=== PATIENT | female | born 1995 | race Caucasian/White ===

== ENCOUNTER 2016-10-13 12:43 | Outpatient (CLI) | payer OTHER | END 2016-10-13 15:50 | disposition home or self-care (01) | LOC: GENOP 12:43 | DX: O99.89 Other specified diseases and conditions complicating pregnancy, childbirth and the puerperium (principal); R10.31 Right lower quadrant pain; Z3A.31 31 weeks gestation of pregnancy | CPT/HCPCS: 59025; 81001; 82731; 96372; J0696 ==

== ENCOUNTER 2016-11-10 18:08 | Outpatient (CLI) | payer OTHER | END 2016-11-10 19:47 | disposition home or self-care (01) | LOC: GENOP 18:08 | DX: O26.853 Spotting complicating pregnancy, third trimester (principal); Z3A.36 36 weeks gestation of pregnancy | CPT/HCPCS: 81001; G0463 ==

== ENCOUNTER 2020-08-10 16:59 | Inpatient (IN) | payer OTHER ==
[~2020-08-10] VITALS: Ht 177.8 cm; Wt 95.3 kg
[~2020-08-10 16:59] MED LIST: AUGMENTIN 875-1 EACH PO
[2020-08-10] MEDS ORDERED: BUSPAR 10MG10 MG PO (17:35)
[2020-08-10 17:39] LABS: HEMOGLOBIN 10.6 gm/dl (12.3-15.3); RED BLOOD COUNT 3.59 M/UL (4.00-5.10); WHITE BLOOD COUNT 11.3 K/UL (4.5-11.0)
[2020-08-11] MEDS ORDERED: CEPHALEXIN500 MG PO (10:11)
[2020-08-11] MEDS ORDERED: IBUPROFEN600 MG PO (12:43)
[2020-08-11] MEDS ORDERED: DOCUSATE SODIU100 MG PO (12:43)
[2020-08-12 05:55] LABS: HEMOGLOBIN 9.3 gm/dl (12.3-15.3)
[2020-08-13] MEDS ORDERED: LABETALOL HCL100 MG PO (14:48)
== END 2020-08-13 15:40 | disposition home or self-care (01) | DRG 807 ==
LOC: GENOP 16:59 → OB 17:20
PROVIDERS: Obstetrics & Gynecology; ADMIT Obstetrics & Gynecology
PROC: 10E0XZZ Delivery of Products of Conception, External Approach (ICD-10-PCS; principal; 2020-08-10)
PROC: 10907ZC Drainage of Amniotic Fluid, Therapeutic from Products of Conception, Via Natural or Artificial Opening (ICD-10-PCS; 2020-08-10)
PROC: 0U7C7ZZ Dilation of Cervix, Via Natural or Artificial Opening (ICD-10-PCS; 2020-08-10)
PROC: 10H07YZ Insertion of Other Device into Products of Conception, Via Natural or Artificial Opening (ICD-10-PCS; 2020-08-10)
PROC: 4A0HXCZ Measurement of Products of Conception, Cardiac Rate, External Approach (ICD-10-PCS; 2020-08-10)
PROC: 4A0HXFZ Measurement of Products of Conception, Cardiac Rhythm, External Approach (ICD-10-PCS; 2020-08-10)
DX: O99.344 Other mental disorders complicating childbirth (principal); Z37.0 Single live birth; F41.8 Other specified anxiety disorders; Z3A.49 Greater than 42 weeks gestation of pregnancy; O69.81X0 Labor and delivery complicated by cord around neck, without compression, not applicable or unspecified; O13.3 Gestational [pregnancy-induced] hypertension without significant proteinuria, third trimester
CPT/HCPCS: 36415; 51702; 81001; 82800; 85014; 85018; 85025; J2590; J2795; J7120; U0003

== ENCOUNTER 2021-01-04 14:42 | Emergency (ER) | payer OTHER ==
[~2021-01-04 14:42] MED LIST changes: +BUSPAR 10MG10 MG PO; +CEPHALEXIN500 MG PO; +DOCUSATE SODIU100 MG PO; +IBUPROFEN600 MG PO; +LABETALOL HCL100 MG PO
[2021-01-04 16:00] LABS: HEMOGLOBIN 12.9 gm/dl (12.3-15.3); RED BLOOD COUNT 4.66 M/UL (4.00-5.10); WHITE BLOOD COUNT 4.9 K/UL (4.5-11.0)
[2021-01-04 16:18] LABS: BUN/CREATININE RATIO 13 (0-10)
== END 2021-01-04 18:32 | disposition home or self-care (01) ==
LOC: ER1 14:42
PROVIDERS: Physician Assistant Medical
DX: U07.1 COVID-19 (principal)
CPT/HCPCS: 0240U; 71045; 80053; 83605; 85025; 87081; 87880; 96374; 96375; 99283; J7030; Q9967

== ENCOUNTER 2021-02-20 15:08 | Emergency (ER) | payer OTHER | END 2021-02-20 18:46 | disposition home or self-care (01) | LOC: ER1 15:08 | DX: O9A.211 Injury, poisoning and certain other consequences of external causes complicating pregnancy, first trimester (principal); S11.91XA Laceration without foreign body of unspecified part of neck, initial encounter; M54.50 Low back pain, unspecified; Z31.0 Encounter for reversal of previous sterilization | CPT/HCPCS: 72040; 72100; 76817; 99284 ==

== ENCOUNTER → 2022-01-04 | Emergency (ER) | payer OTHER ==
[~2022-01-04] MED LIST changes: +COLACE100 MG PO; +CYCLOBENZAPRINE10 MG PO; +HEMOCYTE324 MG PO; +IBUPROFEN800 MG PO
== END | disposition home or self-care (01) ==
LOC: ER1 13:40
DX: S00.03XA Contusion of scalp, initial encounter (principal); S20.221A Contusion of right back wall of thorax, initial encounter; M54.2 Cervicalgia; R40.2410 Glasgow coma scale score 13-15, unspecified time; Z79.899 Other long term (current) drug therapy; Y04.0XXA Assault by unarmed brawl or fight, initial encounter; Y92.009 Unspecified place in unspecified non-institutional (private) residence as the place of occurrence of the external cause
CPT/HCPCS: 70450; 71111; 72125; 99284